=== PATIENT | female | born 1965 | race African-American/Black ===

== ENCOUNTER → 2017-06-30 | Outpatient (CLI) | payer OTHER ==
--- NOTE | 2017-06-30 16:04 | KCIC ---
FOOT LEFT 3V History: Left foot pain, missed a step, injury to the foot one month ago with pain and swelling medially Comparison: None. Findings: 3 views of the left foot are submitted. No recent fracture or dislocation is identified. Impression: 1. No acute osseous abnormality is identified. Electronically signed by: Nicholas Ricketts MD (06/30/2017 4:00 PM) [id number]
== END | disposition home or self-care (01) ==
LOC: KCIC 11:13
PROVIDERS: ATTEND Family Medicine
DX: M79.672 Pain in left foot (principal)
CPT/HCPCS: 73630

== ENCOUNTER → 2020-10-26 | Outpatient (CLI) | payer OTHER ==
[~2020-10-26] MED LIST: LIDOCAINE 1% Multi-Dose 20 ML VIAL. INJ ONE
--- NOTE | 2020-10-26 17:25 | RAD ---
EXAM: US GDE NDL BX/ASPIR/INJ/LOC, MG DIAGNOSTICUNILAT MAMMO 10/26/2020 8:28 AM INDICATION: Left breast mass and calcifications COMPARISON: Outside prior mammogram and left breast ultrasound 09/30/2020 TECHNIQUE/FINDINGS: The purpose of the procedure, risks and benefits were explained to the patient. Informed consent was obtained. A timeout was performed. The patient was placed supine on the ultrasound table. The mass at 12:30, 3 cm from the nipple in the leftbreast was identified and overlying skin marked, prepped, draped in standard sterile fashion. Sk in was anesthetized with 1 percent lidocaine. Next, 5 core biopsy samples were obtained with a coaxia l 14-gauge biopsy device. Mammogram was taken of samples. Possible few calcifications seen in several of the samples. Samples were then placed in formalin and sent to the laboratory for analysis. A biop sy marker was then placed at the biopsy site under ultrasound. Joffre were removed, pressure held fo r hemostasis, and skin cleansed and covered with a dressing. The patient tolerated the procedure well and left in stable condition. Post clip mammogram demonstrates appropriate position of clip in the mass at 12:30, 3 cm from the nip ple in the left breast. IMPRESSION:Technically successful ultrasound-guided biopsy of left breast mass and clip placement. If these biopsy results are negative for malignancy, subsequent stereotactic biopsy of the suspicious o uter left breast calcifications may be needed. Electronically signed by: Yaneth Mc MD (10/26/2020 5:23 PM) [id number]
== END | disposition home or self-care (01) ==
LOC: US 08:16
PROVIDERS: ATTEND Family Medicine
DX: R92.8 Other abnormal and inconclusive findings on diagnostic imaging of breast (principal); N63.20 Unspecified lump in the left breast, unspecified quadrant
CPT/HCPCS: 19083; 77065; 88305; 88361; A4648; 76942

== ENCOUNTER → 2020-11-30 | Outpatient (CLI) | payer OTHER ==
[2020-11-30 11:39] LABS: BASO % 0 % (0-3); EOS % 1 % (0-3); HEMATOCRIT 31.7 % (36.0-47.0); HEMOGLOBIN 10.5 g/dL (12.0-15.5); LYMPH # 1.8 x10^3/uL (1.0-4.8); LYMPH % 39 % (24-48); MEAN CORPUSCULAR HEMOGLOBIN 31 pg (25-35); MEAN CORPUSCULAR HGB CONC 33 g/dL (31-37); MEAN CORPUSCULAR VOLUME 92 fL (79-100); MONO # 0.3 x10^3/uL (0.0-1.1); MONO % 7 % (0-9); NEUT # 2.4 x10^3/uL (1.8-7.7); NEUT % 53 % (31-73); PLATELET COUNT 157 x10^3/uL (140-400); RED BLOOD COUNT 3.44 x10^6/uL (3.50-5.40); RED CELL DISTRIBUTION WIDTH 13.8 % (11.5-14.5); WHITE BLOOD COUNT 4.6 x10^3/uL (4.0-11.0)
[2020-11-30 11:47] LABS: CALCIUM 9.2 mg/dL (8.5-10.1); GFR 69.7; POTASSIUM 3.8 mmol/L (3.5-5.1)
[2020-11-30 11:52] LABS: TOTAL BILIRUBIN 0.3 mg/dL (0.2-1.0)
== END ==
LOC: ONCLAB 10:32
PROVIDERS: ATTEND Internal Medicine Hematology & Oncology
DX: C50.012 Malignant neoplasm of nipple and areola, left female breast (principal)
CPT/HCPCS: 36415; 80053; 85025; 86300

== ENCOUNTER → 2020-12-07 | Outpatient (CLI) | payer OTHER ==
[~2020-12-07] MED LIST changes: +GADOTERATE 7.5 MMOL/15ML VIAL. IVP ONE; +IOHEXOL 240 MG/ML 50ML VIAL. PO ONE; -LIDOCAINE 1% Multi-Dose 20 ML VIAL. INJ ONE
--- NOTE | 2020-12-07 10:59 | RAD ---
EXAM: Chest, abdomen and pelvis CT without intravenous contrast. HISTORY: Breast cancer staging. TECHNIQUE: Computed tomographic images of the chest, abdomen and pelvis were obtained without contras t. Multiplanar reformatting was performed. *One or more of the following individualized dose reduction techniques were utilized for this examina tion: 1. Automated exposure control. 2. Adjustment of the mA and/or kV according to patient size. 3. Use of iterative reconstruction technique. COMPARISON: None. FINDINGS: Chest: The heart is normal in size. The aorta is normal in caliber. No pathologically enlarged medias tinal, hilar, axillary or subpectoral lymph node is seen. No convincing breast mass is seen with CT t echnique. There is no pneumothorax or pleural effusion. There is no infiltrate. There is basilar and posterior dependent atelectasis. There is no suspicious pulmonary nodule. There is no suspicious osse ous lesion. Abdomen and pelvis: There are small hypodense lesions within the right hepatic lobe measuring 10 mm, 8 mm and 7 mm. These are too small to characterize in the absence of contrast. The gallbladder, pancr eas, spleen and adrenal glands are unremarkable. No renal lesion or hydronephrosis is seen. There is no appendicitis. There is a large amount of stool within the colon. There is no evidence of bowel obs truction or abnormal bowel wall thickening. The urinary bladder, uterus and adnexal regions are unrem arkable. The aorta is normal in caliber. There is no mesenteric or retroperitoneal lymphadenopathy. T here is no suspicious osseous lesion. IMPRESSION: 1. Small hypodense lesions within the liver, difficult to characterize in the absence of contrast. Th terry may be cysts. Liver sonography or liver protocol CT or MRI can be performed to confirm benignity, given a history of primary breast malignancy. 2. No acute thoracic, abdominal or pelvic finding. Electronically signed by: Elle Marques MD (12/07/2020 10:57 AM) [id number]
--- NOTE | 2020-12-07 11:59 | RAD ---
MRI of the Brain without and with Contrast 12/07/2020 Clinical History: Invasive ductal breast cancer. Staging. Technique: Unenhanced T1-weighted sagittal and axial and FLAIR, T2-weighted, susceptibility weighted and diffusion-weighted axial images of the brain were obtained. After the intravenous administration of 15 cc of Clariscan, enhanced T1-weighted axial, sagittal and coronal images of the brain were obta ined. Findings: Comparison study is dated 04/21/2016. The ventricles and sulci are within normal limits in size and configuration. No area of significant a bnormal signal intensity is seen involving the brain parenchyma. No extra-axial fluid collection is n oted. There is no MRI evidence of acute ischemia/infarction. No area of abnormal contrast enhancement is seen. Mild to moderate mucosal thickening in seen scattered throughout the ethmoid air cells bilaterally. V cynthia mild mucosal thickening is seen involving both maxillary sinuses and both frontal sinuses. Normal flow voids are seen within the major vascular structures surrounding the brain parenchyma. There are minimal bilateral mastoid effusions. IMPRESSION: 1. Negative MRI of the brain. There is no MRI evidence of metastatic disease involving the brain pare nchyma. 2. Mild paranasal sinus and mastoid disease. Electronically signed by: Augustin Miranda MD (12/07/2020 11:56 AM) [id number]
--- NOTE | 2020-12-07 13:20 | RAD ---
EXAM: Nuclear bone scan. HISTORY: Breast cancer staging. TECHNIQUE: Following the intravenous injection of 25 mCi of Tc 99m labeled methylene diphosphonate (M DP), whole body imaging was performed. COMPARISON: Body CT obtained on the same date. FINDINGS: There is no convincing abnormal radiotracer activity to suggest osseous metastatic disease. There is suspected degenerative uptake involving the sternoclavicular joints, shoulders, lumbar spin e and left hindfoot. There is expected activity within the renal collecting system. There is fairly s ymmetric uptake involving both breasts. IMPRESSION: No convincing radiotracer activity to suggest osseous metastatic disease. Electronically signed by: Elle Marques MD (12/07/2020 1:18 PM) [id number]
== END ==
LOC: NM 08:50
PROVIDERS: ATTEND Internal Medicine Hematology & Oncology
DX: C50.012 Malignant neoplasm of nipple and areola, left female breast (principal); K76.9 Liver disease, unspecified
CPT/HCPCS: 70553; 71250; 74176; 78306; A9503; A9575; Q9966

== ENCOUNTER 2021-01-06 09:56 | Observation (INO) | payer OTHER ==
[2021-01-06] VITALS (8 sets, daily range): BP systolic 123–166; BP diastolic 81–99
[~2021-01-06] VITALS: Ht 170.2 cm; Wt 81.5 kg
[~2021-01-06 09:56] MED LIST changes: +ALBU2.5V8 INH; +ATOR20TA58 PO; +CARV6.2511 PO; +DILT240C33 PO; +FLUT9.9S NS; +GABA800T PO; -GADOTERATE 7.5 MMOL/15ML VIAL. IVP ONE; +HYDROmorphone 2 MG/ML VIAL IVP PRN; -IOHEXOL 240 MG/ML 50ML VIAL. PO ONE; +IV RINGERS,LACTATED 1000ML 1,000 ML IV SCH; +MORPHINE SULFATE 2 MG/ML INJ. IVP PRN; +PROCHLORPERAZINE 10 MG/2 ML VIAL. IVP PRN; +ceFAZolin 2GM PREMIX 2 GM/50 ML BAG IV ONE; +fentaNYL PF VIAL 100 MCG/2 ML VIAL IVP PRN
[2021-01-06] MEDS ORDERED: LIDOCAINE 2% PF 5 ML VIAL. ONE (12:49)
[2021-01-06] MEDS ORDERED: SEVOFLURANE 61 TO 120 MINUTES. IH ONE (12:49)
[2021-01-06] MEDS ORDERED: PROPOFOL 10 MG/ML (20ML) VIAL. IV ONE (12:50)
[2021-01-06] MEDS ORDERED: ONDANSETRON PF 4 MG/2 ML VIAL. ONE (12:50)
[2021-01-06] MEDS ORDERED: DEXAMETHASONE SOD PHOS 4 MG/ML VIAL ONE ×2 (12:50→15:28)
[2021-01-06] MEDS ORDERED: KETOROLAC 30 MG/ML VIAL. ONE (12:50)
[2021-01-06] MEDS ORDERED: MIDAZOLAM HCL/PF 2 MG/2 ML VIAL. ONE (13:23)
[2021-01-06] MEDS ORDERED: ISOSULFAN BLUE 1% 50 MG/5 ML VIAL. SQ ONE ×2 (13:26→14:26)
[2021-01-06] MEDS ORDERED: ePHEDrine PF IN SALINE 50 MG/10 ML SYRINGE. IV ONE (13:38)
[2021-01-06] MEDS ORDERED: METHYLENE BLUE 0.5% 10ml AMPULE. ONE (13:46)
[2021-01-06] MEDS ORDERED: BUPIVACAINE-EPI 0.25% 30 ML VIAL KIT. INJ ONE (13:57)
[2021-01-06] MEDS ORDERED: METHYLENE BLUE 0.5% 10ml AMPULE. IJ ONE (13:57)
[2021-01-06] MEDS ORDERED: fentaNYL PF VIAL 100 MCG/2 ML VIAL ONE ×2 (14:32→17:46)
--- NOTE | 2021-01-06 15:24 | PDOC4 ---
Operative Note Operative Note Operative Note: Preoperative Diagnosis: Left breast cancer Postoperative Diagnosis: Same Procedure: Left simple mastectomy with sentinel lymph node biopsy Surgeon: Zachariah [employer] Shelter Worker: Naye CASTILLO Anesthesia: General EBL: 40 mL Specimen: Left axillary sentinel lymph nodes 1 through 3 to pathology, left breast stitch at 12:00 to pathology Drains: None Complications: None Indication: The patient is a 55-year-old female who presented with recently diagnosed left breast cancer. Based on her presentation including an MRI there appears to be fairly extensive involvement requiring a complete mastectomy. Dr. Carreno was consulted with plastic surgery and is planning initiation of immediate reconstruction. The risks of surgery were discussed with the patient which include bleeding, infection, wound healing problems, scar tissue, anesthetic risk, potential need for additional surgery procedure. She understands and would like to proceed. Description: The patient was initially taken to radiology where she underwent injection of technetium sulfur colloid. She was then brought to the operating room and placed supine in the operating table. General anesthesia was performed. The left breast and axilla were prepped with ChloraPrep and draped in a standard surgical manner. Five mL of Lymphazurin were injected deep to the nipple areolar complex. Several minutes were allowed to elapse. An elliptical tracing was made around the breast extending from the medial chest to to the axilla. The skin of the superior lateral aspect of the tracing was opened with a scalpel. Cautery dissection was carried down into the axillary contents. We were able to identify three sequential areas of increased nuclear uptake all of which corresponded to blue staining lymph nodes. Each of these lymph nodes were harvested from the surrounding tissues and sent to pathology. Frozen section analysis showed no evidence of metastasis. There were no other areas of increased nuclear uptake blue staining or palpable adenopathy. We therefore proceeded with the mastectomy. With a scalpel in skin incision was completed along the remainder of the tracing. Cautery dissection was used to develop the skin flaps. The superior flap was developed first the skin from the deeper breast parenchyma. This was carried superiorly to the level below the clavicle. The inferior flap was similarly developed and the dissection included the inframammary fold. In a medial to lateral fashion the breast was taken off of the chest wall. Several blood vessels were encountered all of which were cauterized. A stitch was used to vilma the 12 o'clock position and the breast specimen was sent to pathology. Hemostasis was readily achieved with cautery. Dr. Carreno then reported and scrubbed in to begin initiation of reconstruction with an sales department clerk. Closure of the wound was as per Dr. Carreno's report. CARMINA CHACON MD Jan 06, 2021 15:24
[2021-01-06] MEDS ORDERED: ONDANSETRON PF 4 MG/2 ML VIAL. IVP PRN (15:30)
[2021-01-06] MEDS ORDERED: 0.9 % SODIUM CHLORIDE 10 ML DISP.SYRIN. IV PRN (15:30)
[2021-01-06] MEDS ORDERED: HYDROcodone/APAP 5/325MG 1 TAB TABLET PO PRN (15:30)
[2021-01-06] MEDS ORDERED: NALOXONE 0.4 MG/ML VIAL. IV PRN (15:30)
[2021-01-06] MEDS ORDERED: HYDROmorphone 2 MG/ML VIAL IV PRN (15:30)
[2021-01-06] MEDS ORDERED: IV NORMAL SALINE 1000ML BAG 1,000 ML IV SCH (15:30)
--- NOTE | 2021-01-06 15:43 | RAD ---
NM SENTINEL NODE INJECTION Clinical Indication: Russell node injection prelumpectomy for left breast cancer Comparison: Left breast mammogram 10/26/2020 Findings: Written informed consent was obtained. The periareolar skin is cleaned in normal sterile fashion. Int radermal injection at 12, 3, 6, and 9:00 position adjacent to the areola is performed in 4 equal aliq uots using a 25-gauge needle. A total of 1 mCi Lymphoseek was injected. No imaging was acquired. IMPRESSION: Preoperative nuclear medicine left breast sentinel node injection. Electronically signed by: Yaneth Mc MD (01/06/2021 3:40 PM) [id number]
[2021-01-06] MEDS ORDERED: BUPIVACAINE-EPI 0.25% 30 ML VIAL KIT. ONE (16:09)
[2021-01-06] MEDS: CARVEDILOL 6.25 MG TABLET. PO SCH (21:22)
[2021-01-06] MEDS: GABAPENTIN 400 MG CAPSULE. PO SCH (21:22)
[2021-01-06] MEDS: HYDROcodone/APAP 5/325MG 1 TAB TABLET PO PRN (21:23)
[2021-01-06] MEDS: IV 1/2 NORMAL SALINE 1,000 ML IV SCH (22:21)
[2021-01-07] MEDS: HYDROcodone/APAP 5/325MG 1 TAB TABLET PO PRN ×4 (01:35→15:14)
[2021-01-07] MEDS: IV 1/2 NORMAL SALINE 1,000 ML IV SCH ×2 (02:37→13:44)
[2021-01-07 03:00] VITALS: BP 113/78
[2021-01-07 07:00] VITALS: BP 104/80
[2021-01-07] MEDS ORDERED: FLUTICASONE 50MCG/NASAL SPRAY 16GM BOTTLE. NS SCH (09:00)
[2021-01-07] MEDS: GABAPENTIN 400 MG CAPSULE. PO SCH ×2 (09:20→14:10)
[2021-01-07] MEDS: CARVEDILOL 6.25 MG TABLET. PO SCH (09:21)
--- NOTE | 2021-01-07 10:08 | NUR ---
SW following. Discussed with RN, pt from home with family, room air, regular diet. Pt had surgery on 01/06/21. RN advised no SW needs at this time, anticipates possible discharge home with self care today. SW will continue to follow.
--- NOTE | 2021-01-07 10:43 | PDOC ---
SURGICAL PROGRESS NOTE DATE: 01/07/21 TIME: 10:42 Subjective doing ok this AM some swelling and pain above site Vital Signs Vital Signs Date Time Temp Pulse Resp B/P (MAP) Pulse Ox O2 Delivery O2 Flow Rate FiO2 01/07/21 09:22 80 104/80 01/07/21 07:15 16 Room Air 01/07/21 07:00 97.9 93 97.9 01/06/21 17:20 6 I&O Intake and Output 01/07/21 07:00 Intake Total 1150 ml Output Total 255 ml Balance 895 ml Intake Oral 0 ml IV Total 1150 ml Output Drainage Total 210 ml Estimated Blood Loss 45 ml General: Alert, Cooperative Skin: Other (dressing intact, drains in place, 12 oclock area mild swelling, tenderness ) Assessment/Plan tentative plan home, after seen by Dr Carreno Justicifation of Admission Dx: Justifications for Admission: Justification of Admission Dx: Yes Comments: breast cancer JUAN DANIEL KWONG APRN Jan 07, 2021 10:43
[2021-01-07] MEDS ORDERED: HYDR-2761 PO (10:45)
[2021-01-07] MEDS ORDERED: DOCU-109 PO (10:45)
--- NOTE | 2021-01-07 10:47 | DISCH ---
DISCHARGE INSTRUCTIONS Condition on Discharge Condition on Discharge: Stable Activity After Discharge Activity Instructions for Disc: Activity as tolerated Bathing Instructions: Shower-keep dressing dry Lifting Instructions after Dis: No heavy lifting, No pulling or pushing Exercise Instruction after Dis: Walk 15 min, 3 x per day Driving Instructions after Dis: Do not drive today Diet after Discharge Diet Texture: Regular Wound Incision Care Wound/Incision Care: Do not change dressing Other wound/incision instructi: drain care per Dr holbrook Contacting the DRMatthew after DC Call your doctor for: Concerns you may have Follow-Up Follow up with: Dr Soni 01/21 0177, call for questions [phone] JUAN DANIEL KWONG GROUP TESTER Jan 07, 2021 10:47
[2021-01-07 11:00] VITALS: BP 111/66
[2021-01-07 15:00] VITALS: BP 107/64
--- NOTE | 2021-01-07 16:00 | NUR ---
Pt was given all discharge instructions, follow up information, new prescriptions and teaching. Pt's Iv removed. All belongings left with patient at time of discharge. Pt left at 1534, escorted via wheelchair by hospital nurse to vehicle, family at bedside when giving instructions. Leaving with 2 BOOKER drains, draining well with minimal clotting, sanguinous drainage. Dressing is CDI, to remain intact until follow up appointment with Dr. Carreno/ Dr. Soni.
[2021-01-07] MEDS ORDERED: ATORVASTATIN CALCIUM 20 MG TABLET PO SCH (21:00)
--- NOTE | 2021-01-08 21:29 | PDOC4 ---
OPERATIVE NOTE Date: Date: Jan 06, 2021 Pre-Op Diagnosis: Left breast cancer Post-Op Diagnosis: Same Procedure Performed: Immediate first stage left breast reconstruction with tissue field administrator, CPT 56280 x one unit Surgeon: Miryam Tejada MD Anesthesia Type: General endotracheal anesthesia Blood Loss: Minimal Specimans Obtained: None Findings: As below Complications: None Operative Note: After identification of the patient and informed consent was taken in the perioperative holding area, the patient was taken to the operating room and placed on the table in the supine position. Antibiotic prophylaxis was given. A timeout was completed verifying the correct site and correct procedure. General anesthesia was given. The patient was prepped with ChloraPrep in the usual sterile fashion. Dr. Tavon Soni performed a left simple mastectomy. Please see his separately dictated note. I then returned to the operating room to perform the immediate left breast reconstruction. The operative site was reprepped with Betadine and draped in a sterile fashion. I inspected the mastectomy site and found it to be free of active bleeding. The mastectomy specimen weighed just over 1000 g. The mastectomy flaps were in good condition with no overt signs of ischemia. A Datapipe Leo 850 cc tissue field administrator was chosen and prepared on the back table by suctioning all of the air out of the device and injecting 5 cc of methylene blue.The field administrator was immersed in a diluted Betadine solution. I elevated a subpectoral pocket using electrocautery from the pectoralis lateral border dissecting medially towards the sternal border and inferiorly towards the superior rectus fascia without disinserting the pectoralis major. I then elevated the serratus anterior muscle from medial to lateral. The subpectoral and mastectomy pockets were thoroughly irrigated with a diluted Betadine solution. The pockets were inspected to ensure hemostasis. My gloves were cleansed and the tissue field administrator was brought into the field to test the pocket. Once a satisfactory fit was obtained the tissue field administrator was placed in the subpectoral pocket and secured to the underlying periosteum with 2-0 Prolene suture at the marked tabs inferiorly and laterally. A 15 Russian silicone perforated drain was placed in the subpectoral pocket and brought out through a lateral stab wound incision. A 19 Russian silicone BOOKER drain was placed in the mastectomy pocket and brought out through a separate stab incision lateral to the 15 Russian BOOKER drain. Both BOOKER drains were secured with 3-0 nylon suture. The deep dermis was approximated with a running 20 Quill suture. The skin was closed with a running 4-0 Monocryl suture. Steri-Strips and an island bandage were placed. No expansion was performed. The patient tolerated the procedure well and was taken to the PACU in stable condition. Operative time: 3:31 PM - 4:37 PM MIRYAM TEJADA MD Jan 08, 2021 21:29
--- NOTE | 2021-01-08 21:42 | PDOC ---
Provider Note Date of Service: DATE: 01/07/21 TIME: 12:15PM Provider Note S: Patient examined at the bedside with her daughter and sister. Her pain was adequately controlled for most of the night. However she did get behind and had some pain this morning. She has some questions about the palpability of the tissue environmental consultant. Ambulating without difficulty. Tolerating a regular diet. O: General: Afebrile. Vital signs stablePlease code this visit a CPT 21121. Chest: Left mastectomy site with island bandage intactclean, dry. Mastectomy flaps with good color and no signs of ischemia. No signs of hematoma or fluid collection. BOOKER drains with sanguinous output. These were stripped at bedside and demonstrated to the patient. A/P 55-year-old female postop day 1 status post left simple mastectomy and immediate first stage left breast reconstruction with tissue environmental consultant insertion The patient is doing well. We discussed that the environmental consultant will be palpable and visible. We discussed that the environmental consultant will not be pretty and its sole purpose is to stretch skin to provide us with extra skin to recreate her breast. Okay for discharge from plastic standpoint Patient will have Percocet, Zofran, Valium, docusate sodium for home scripts No heavy lifting, pushing, or pulling with the left side for at least 6 weeks. Follow-up in my clinic in 1 week for postop assessment We will plan to begin expansion in approximately 2 weeks. Miryam Tejada MD Justifications for Admission Other Justification MIRYAM TEJADA MD Jan 08, 2021 21:42
--- NOTE | 2021-01-14 17:23 | PATHOLOGY ---
[facility] Accession Number: [id number] . 01 Material submitted: . PART A: lymph node - SENTINEL LYMPH NODE #1-FS. Modifiers: BREAST, left PART B: lymph node - SENTINEL LYMPH NODE #2-FS. Modifiers: left, BREAST PART C: lymph node - SENTINEL LYMPH NODE #3-FS. Modifiers: left, BREAST PART D: breast - BREAST TISSUE LEFT STITCH AT 12 O'CLOCK. Modifiers: left . 01 Clinical history: . A,B,C: NEGATIVE FOR TUMOR LEFT BREAST CANCER LEFT SIMPLE MASTECTOMY LEFT SENTINEL LYMPH NODE BIOPSY . 02 Frozen section diagnosis: . FROZEN SECTION DIAGNOSIS: (Dave Lilly M.D.): FSA1. [place] lymph node #1: - Negative for tumor. . The results are reported to Dr. Soni in the operating room. . . FSB1. Mach[place] lymph node #2: - Negative for tumor. . The results are reported to Dr. Soni in the operating room. . . FSC1. Machias lymph node #3: - Negative for tumor. . The results are reported to Dr. Soni in the operating room. . Frozen sections performed at [facility], [address] [place] [address]. . . FROZEN SECTION GROSS DESCRIPTION: A. The specimen is received fresh for intraoperative consultation and is designated "sentinel lymph node #1". This consists of an ovoid shaped segment of yellow fatty appearing tissue measuring up to 2.5 x 2.0 cm. This shows focal bluish discoloration. Sectioning reveals a pale yellow-herrera lymph node showing bluish discoloration, measuring up to 1.5 cm. This is bisected and submitted for frozen section as FSA1. The tissue remaining from frozen section is submitted for permanent sections as A1. . B. The specimen is received fresh for intraoperative consultation and is designated "sentinel lymph node #2". This consists of an ovoid shaped segment of yellow fatty tissue measuring up to 2.3 x 1.8 cm. There is focal bluish discoloration. Sectioning reveals a yellow-herrera lymph node measuring up to 1.1 cm. The sectioned surface is centrally fatty. There is no gross evidence of tumor replacement. This is submitted for frozen section as FSB1. The tissue remaining from frozen section is submitted for permanent sections as B1. . C. The specimen is received fresh and is designated "sentinel lymph node #3". This consists of a segment of yellow-red fatty tissue measuring up to 2.3 x 1.6 cm. Sectioning reveals a yellow-gongora lymph node measuring up to 1.1 cm in greatest dimension. This is submitted for frozen section as FSC1. The tissue remaining from frozen section is submitted for permanent sections as C1. (JPM/db; 01/07/2021) JERRY/RICHARD . 02 Diagnosis: A. Lymph node, sentinel lymph node #1: - Negative for tumor. . B. Lymph node, sentinel lymph node #2: - Negative for tumor. . C. Lymph node, sentinel lymph node #3: - Negative for tumor. . D. Skin with nipple/areolar complex and attached breast tissue, left simple mastectomy: - Focal residual invasive ductal carcinoma, histologic grade I-II, measuring up to 5 mm in greatest dimension. 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 - Invasive tumor is approximately 2.4 cm from the closest (deep) margin of resection. - DCIS is greater than 1.0 cm from the closest (deep) margin. - Previous biopsy site changes. - Fibrocystic changes. - Sclerosing adenosis, focal. (JPM:pit; 01/14/2021) RUST 01/14/2021 1343 Local . 02 Comment: The sentinel lymph nodes are examined at multiple levels. In addition, immunoperoxidase stains for AE1/AE3 are obtained on each of the sentinel lymph nodes and yield the following results: . AE1/AE3 (A1) - negative for tumor. AE1/AE3 (B1) - negative for tumor. AE1/AE3 (C1) - negative for tumor. . Sections of the left simple mastectomy reveal a small focus of residual invasive ductal carcinoma, histologic grade 1-2, measuring 5 mm in greatest dimension. There is low to focal intermediate grade ductal carcinoma in situ of cribriform and solid type within breast tissue surrounding the focus of residual invasive carcinoma. The margins of excision are free of invasive carcinoma and DCIS. . (JPM:alexia; 01/14/2021) . . Surgical Pathology Cancer Case Summary Protocol posting date: August 2019 INVASIVE CARCINOMA OF THE BREAST: Resection . Procedure ___ Other: Simple mastectomy . Specimen Laterality ___ Left . + Tumor Site + ___ Clock position: 12:30 o'clock . Tumor Size ___ Greatest dimension of largest invasive focus >1 mm: 5 mm . Histologic Type ___ Invasive carcinoma of no special type (ductal) . Histologic Grade (Woodbury Histologic Score) Glandular (Acinar)/Tubular Differentiation ___ Score 2 (10% to 75% of tumor area forming glandular/tubular structures) . Nuclear Pleomorphism ___ Score 2 (cells larger than normal with open vesicular nuclei, visible nucleoli, and moderate variability in both size and shape) . Mitotic Rate ___ Score 1 . Overall Grade ___ Grade 1 (scores of 3, 4, or 5) . + Tumor Focality + ___ Single focus of invasive carcinoma . Ductal Carcinoma In Situ (DCIS) ___ Present + ___ Positive for extensive intraductal component (EIC) . + Size (Extent) of DCIS + Number of blocks with DCIS: 4 + Number of blocks examined: 12 . + Architectural Patterns + ___ Cribriform + ___ Solid . + Nuclear Grade + ___ Grade I-II (low to intermediate) . + Necrosis + ___ Present, central (expansive "comedo" necrosis) . + Lobular Carcinoma In Situ (LCIS) + ___ Not identified . Margins Invasive Carcinoma Margins ___ Uninvolved by invasive carcinoma Distance from closest margin (millimeters): ___ Specify 24 mm + Specify closest margin(s): Deep margin . DCIS Margins ___ Uninvolved by DCIS . Distance from closest margin: ___ Greater than 10 mm Specify closest margin(s): Deep margin . Regional Lymph Nodes ___ Uninvolved by tumor cells . Total Number of Lymph Nodes Examined: 3 Number of Machias Nodes Examined: 3 . + Lymphovascular Invasion + ___ Not identified . Pathologic Stage Classification (pTNM, AJCC 8th Edition) Primary Tumor (pT) ___ pT1a: Tumor >1 mm but less than or equal to 5 mm in greatest dimension . Regional Lymph Nodes (pN) . ___ pN0: No regional lymph node metastasis identified or ITCs only . + Additional Pathologic Findings + Specify: See diagnoses . + Microcalcifications + ___ Present in DCIS + ___ Present in non-neoplastic tissue . (JPM:alexia; 01/14/2021) . 02 Electronically signed: . Christian Lilly MD, Pathologist NPI- [id number] . 01 Gross description: . A-C. SEE FROZEN SECTION GROSS DESCRIPTION. . D. Received in formalin labeled "Rima Boland, breast tissue left stitch at 12:00" is a 1033 g simple mastectomy specimen measuring 24.3 cm from medial to lateral, 19.9 cm from superior to inferior and 6.1 cm from superficial to deep. There is herrera-brown skin ellipse measuring 23.4 x 11.2 cm with a central everted nipple measuring 1.8 x 1.7 x 0.9 cm. The specimen is oriented with a suture designating 12:00. The specimen is sectioned from medial lateral to reveal an irregular ill-defined herrera-pink mass containing an S-shaped biopsy clip measuring 0.4 x 0.4 x 0.4 cm and located: . 8.1 cm from superior 11.4 cm from inferior 4.1 m from anterior 2.4 cm from deep 12.9 cm from medial 11.1 cm from lateral 3.9 cm from the nipple . There is an increased area of nodularity surrounding the mass measuring 3.1 x 3.6 x 1.2 cm, which is greater than 1 cm from the margins. The uninvolved breast parenchyma is 80% lobular, herrera-yellow and 20% fibrous herrera-white breast parenchyma. Deep margin is inked black. Java J2Ee Lead sections of the specimen are submitted as follows: . D1. Java J2Ee Lead sections from upper outer quadrant D2. Java J2Ee Lead sections from lower outer quadrant D3. Java J2Ee Lead sections from lower inner quadrant D4. Java J2Ee Lead sections from upper inner quadrant D5. Java J2Ee Lead sections of skin closest to mass D6-D8. Nipple serially sectioned and entirely submitted D9-D10. Mass entirely submitted D11. Deep margin to mass D12-D16 Java J2Ee Lead area of nodularity surrounding mass. . The specimen was removed from the patient at 1504 on January 06, 2021 with no time designated placed in formalin not removed from formalin until 1750 on January 08, 2021.([facility]; 01/08/2021) GZA/LBQ 01/14/2021 1323 Local . 02 Pathologist provided ICD-10: C50.912, D05.12, N60.12, N60.22 . 02 CPT . 848781, 318191, 179642, 114456, 013147, 299070, [id number] Specimen Comment: A courtesy copy of this report has been sent to [phone], [phone] Specimen Comment: [phone] Specimen Comment: Report sent to / DR CONTRERAS Performed at: 01 [facility] [address], [place] [id number] MD Johny Esquivel MD Phone: [phone] Performed at: 02 [facility] [address], [place] [id number] MD Christian Lilly MD Phone: [phone]
== END 2021-01-07 15:34 | disposition home or self-care (01) ==
LOC: SURG 09:56 → 4 NORTH 19:45 → INTOOBSV 19:45
PROVIDERS: ADMIT Surgery; ATTEND Surgery
DX: C50.912 Malignant neoplasm of unspecified site of left female breast (principal)
CPT/HCPCS: 19303; 19357; 38525; 38792; 96365; 96366; A4209; A4213; A4364; A4930; A6220; A6254; A6255; A6258; A6402; A9520; C1789; G0378; G0379; J0690; J1100; J1885; J2250; J2405; J2704; J3010; J3490; Q9968; 88307; 88331; 96374; A4222; A4452

== ENCOUNTER → 2021-01-27 | Outpatient (CLI) | payer OTHER ==
[2021-01-07 15:00] VITALS: BP 107/64
[~2021-01-27] MED LIST changes: +DOCU-109 PO; +HYDR-2761 PO; -HYDROmorphone 2 MG/ML VIAL IVP PRN; -IV RINGERS,LACTATED 1000ML 1,000 ML IV SCH; -MORPHINE SULFATE 2 MG/ML INJ. IVP PRN; -PROCHLORPERAZINE 10 MG/2 ML VIAL. IVP PRN; -ceFAZolin 2GM PREMIX 2 GM/50 ML BAG IV ONE; -fentaNYL PF VIAL 100 MCG/2 ML VIAL IVP PRN
[2021-01-27 12:51] LABS: BASO % 0 % (0-3); EOS % 1 % (0-3); HEMATOCRIT 32.8 % (36.0-47.0); HEMOGLOBIN 10.8 g/dL (12.0-15.5); LYMPH # 2.1 x10^3/uL (1.0-4.8); LYMPH % 51 % (24-48); MEAN CORPUSCULAR HEMOGLOBIN 32 pg (25-35); MEAN CORPUSCULAR HGB CONC 33 g/dL (31-37); MEAN CORPUSCULAR VOLUME 97 fL (79-100); MONO # 0.3 x10^3/uL (0.0-1.1); MONO % 8 % (0-9); NEUT # 1.6 x10^3/uL (1.8-7.7); NEUT % 39 % (31-73); PLATELET COUNT 191 x10^3/uL (140-400); RED BLOOD COUNT 3.38 x10^6/uL (3.50-5.40); RED CELL DISTRIBUTION WIDTH 13.6 % (11.5-14.5)
[2021-01-27 13:07] LABS: CALCIUM 9.1 mg/dL (8.5-10.1); CREATININE 0.9 mg/dL (0.6-1.0); GFR 78.7
[2021-01-27 13:13] LABS: ALBUMIN 3.3 g/dL (3.4-5.0); ALBUMIN/GLOBULIN RATIO 0.8 (1.0-1.7); TOTAL BILIRUBIN 0.2 mg/dL (0.2-1.0); TOTAL PROTEIN 7.3 g/dL (6.4-8.2)
== END ==
LOC: ONCLAB 12:14
PROVIDERS: ATTEND Internal Medicine Hematology & Oncology
DX: C50.012 Malignant neoplasm of nipple and areola, left female breast (principal)
CPT/HCPCS: 36415; 80053; 85025

== ENCOUNTER → 2021-02-02 | Outpatient (CLI) | payer OTHER ==
[2021-01-07 15:00] VITALS: BP 107/64
--- NOTE | 2021-02-02 15:07 | KCIC ---
INDICATION: Screening for osteopenia/osteoporosis. Postmenopausal evaluation. COMPARISON: None. TECHNIQUE: Bone densitometry was performed through the lumbar spine and proximal femur. IMPRESSION: Lumbar Spine: BMD: 1.06 T-Score: 0.1 Range: Normal Proximal Femur: BMD: 1.01 T-Score: 0.6 Range: Normal World Health Organization Criteria for Bone Density: T-Score: > -1.0: Normal Range < -1.0 to -2.5: Osteopenic Range < -2.5: Osteoporotic Range Electronically signed by: Joel Herr MD (02/02/2021 3:04 PM) [id number]
== END ==
LOC: KCIC DEXA 09:57
PROVIDERS: ATTEND Internal Medicine Hematology & Oncology
DX: C50.012 Malignant neoplasm of nipple and areola, left female breast (principal)
CPT/HCPCS: 77080

== ENCOUNTER 2021-09-13 09:57 | Day surgery (SDC) | payer OTHER ==
[~2021-09-13] VITALS: Ht 167.6 cm; Wt 86.0 kg
[~2021-09-13 09:57] MED LIST changes: +ANAS1TAB47 PO; +DIAZ5TAB4 PO; +HYDROmorphone 2 MG/ML INJ. IVP PRN; +IV RINGERS,LACTATED 1000ML 1,000 ML IV SCH; +MELO15TA23 PO; +MORPHINE SULFATE 2 MG/ML INJ. IVP PRN; +PROCHLORPERAZINE 10 MG/2 ML VIAL. IVP PRN; +fentaNYL PF VIAL 100 MCG/2 ML VIAL IVP PRN
[2021-09-13 10:36] VITALS: BP 131/89
--- NOTE | 2021-09-13 11:15 | EKG ---
[facility] [address] [place] [address] Test Date: 2021-09-13 Test Time: 11:14:12 Pat Name: VLADIMIR STEWART Department: Room: Gender: F Flame Hardener: JASON : 1965 Requested By: YVON TEJADA Order Number: [id number] Reading MD: Paras Goldsmith MD Measurements Intervals [employer] Rate: 67 P: 49 MA: 210 QRS: 24 QRSD: 74 T: -79 QT: 394 QTc: 419 Interpretive Statements SINUS RHYTHM QRS(T) CONTOUR ABNORMALITY CONSIDER ANTEROSEPTAL MYOCARDIAL DAMAGE T ABNORMALITY IN ANTERIOR LEADS INFEROLATERAL LEADS ABNORMAL ECG Electronically Signed On 09-14-2021 11:00:23 [employer] by Paras Goldsmith MD
[2021-09-13] MEDS ORDERED: ONDANSETRON PF 4 MG/2 ML VIAL. ONE (12:00)
[2021-09-13] MEDS ORDERED: SEVOFLURANE > 120 MINUTES. IH ONE (12:00)
[2021-09-13] MEDS ORDERED: ROCURONIUM 50 MG/5 ML VIAL. ONE (12:00)
[2021-09-13] MEDS ORDERED: fentaNYL PF VIAL 100 MCG/2 ML VIAL ONE ×2 (12:00→15:25)
[2021-09-13] MEDS ORDERED: PROPOFOL 10 MG/ML (20ML) VIAL. IV ONE (12:00)
[2021-09-13] MEDS ORDERED: DEXAMETHASONE SOD PHOS 4 MG/ML VIAL ONE (12:00)
[2021-09-13] MEDS ORDERED: GLYCOPYRROLATE 1 MG/5 ML VIAL. ONE (12:00)
[2021-09-13] MEDS ORDERED: EPINEPHrine 1 MG/ML VIAL ONE (12:04)
[2021-09-13] MEDS ORDERED: BUPIVACAINE-EPI 0.5% 30 ML VIAL KIT. ONE (12:04)
--- NOTE | 2021-09-13 12:32 | PDOC4 ---
OPERATIVE NOTE Date: Date: Jan 06, 2021 Pre-Op Diagnosis: History of left breast cancer Post-Op Diagnosis: Same Procedure Performed: Bilateral TRAM flap delay CPT [id number] Surgeon: Miryam Tejada MD Anesthesia Type: General endotracheal anesthesia Blood Loss: 20 cc Specimans Obtained: None Findings: See operative note Complications: None Operative Note: Informed consent was obtained in the perioperative holding area with the patient and her daughter. The risks of bleeding, infection, hematoma, seroma, hernia, failure of delay procedure were discussed with the patient and her daughter in detail. They understood the risks and desired to proceed. The patient was brought to the operating room and placed on the OR table in the supine position. A timeout was performed verifying the correct patient and procedure. IV antibiotics were given. SCDs were placed. General anesthesia was induced. The patient's abdomen and groin were prepped with ChloraPrep and draped in a sterile fashion. For each side the procedure proceeded as follows: A #15 scalpel was used to make an incision through the skin and superficial dermis. Cautery was used to open the deep dermis into the underlying subcutaneous tissues. The superficial epigastric vessels were cauterized. Dissection continued with hemostats until the anterior rectus fascia was reached. A 4 cm incision began at the fascial layer approximately 6 cm lateral to midline. Hemostats were used to gently dissect the fascia from the underlying preperitoneal fat. The deep inferior epigastric vessels were seen exiting the lateral edge of the rectus muscle. Right angle clamps were used to gently dissect around the vessels and occlude the vessels. Metzenbaum scissors were used to transect the vessels. A combination of medium hemoclips and 3-0 silk sutures were used to ligate the vessels. Hemostasis was assured. The overlying fascia was then approximated with 3-0 Vicryl suture in a [id number] pattern. The deep dermis was closed with 3-0 Vicryl suture. The skin was closed with a running 4-0 Monocryl subcuticular suture. The patient tolerated the procedure well. All needle and sponge counts were correct. The patient was transferred to the recovery room in stable condition. MIRYAM TEJADA MD Sep 13, 2021 12:32
[2021-09-13] MEDS ORDERED: HYDROmorphone 2 MG/ML INJ. ONE (13:04)
[2021-09-13] MEDS ORDERED: HYDROcodone/APAP 5/325MG 1 TAB TABLET PO ONE (15:30)
[2021-09-13] MEDS ORDERED: HYDROcodone/APAP 5/325MG 1 TAB TABLET ONE (15:32)
[2021-09-13 15:39] VITALS: BP 162/87
[2021-09-17] MEDS ORDERED: HYDR-2761 PO (15:43)
[2021-09-17] MEDS ORDERED: ACET325T9 PO (15:43)
== END 2021-09-13 16:10 | disposition home or self-care (01) ==
LOC: SURG 09:57
PROVIDERS: ATTEND Plastic Surgery
DX: Z42.1 Encounter for breast reconstruction following mastectomy (principal); R92.8 Other abnormal and inconclusive findings on diagnostic imaging of breast; I10 Essential (primary) hypertension; E78.00 Pure hypercholesterolemia, unspecified; J45.909 Unspecified asthma, uncomplicated; M19.90 Unspecified osteoarthritis, unspecified site; Z98.51 Tubal ligation status; Z85.3 Personal history of malignant neoplasm of breast; Z98.890 Other specified postprocedural states; Z79.899 Other long term (current) drug therapy; Z88.8 Allergy status to other drugs, medicaments and biological substances
CPT/HCPCS: 15600; 93005; A4364; A4930; A6220; J0171; J0690; J1100; J2405; J2704; J3010; J3490; A4452; J1170